=== PATIENT | female | born 1980 | race Caucasian/White ===

== ENCOUNTER 2018-01-25 00:30 | Emergency (ER) | payer MEDICAID, OTHER ==
[2018-01-25] MEDS ORDERED: ACETAMINOPHEN EXTRA STRENGTH 500 MG TABLET ONE (01:15)
[2018-01-25] MEDS ORDERED: CEPHALEXIN 500 MG CAPSULE ONE (01:15)
== END 2018-01-25 01:24 | disposition home or self-care (01) ==
LOC: EDH 00:30
DX: H60.11 Cellulitis of right external ear (principal); J45.909 Unspecified asthma, uncomplicated; F20.9 Schizophrenia, unspecified; Z88.5 Allergy status to narcotic agent; Z88.8 Allergy status to other drugs, medicaments and biological substances; Z72.0 Tobacco use

== ENCOUNTER 2019-01-07 22:00 | Inpatient (IN) | payer SELFPAY ==
[~2019-01-07] VITALS: Ht 165.1 cm; Wt 85.4 kg
[2019-01-07] MEDS ORDERED: LIDOCAINE HCL 1% 20 ML VIAL ONE (22:22)
[2019-01-07 22:44] LABS: BASOPHILS % (AUTO) 0.3 % (0.0-5.0); EOSINOPHILS % (AUTO) 0.6 % (0.0-8.0); HEMATOCRIT 29.6 % (36-48); LYMPHOCYTES % (AUTO) 14.6 % (21.0-51.0); MEAN CORPUSCULAR HEMOGLOBIN 22.6 pg (27.0-33.0); MEAN CORPUSCULAR HGB CONC 31.6 g/dL (32.0-36.0); MEAN CORPUSCULAR VOLUME 71.7 fL (79-99); MONOCYTES % (AUTO) 5.8 % (3.0-13.0); NEUTROPHILS % (AUTO) 78.7 % (40.0-77.0); PLATELET COUNT (AUTO) 293 K/uL (130-400); RED BLOOD CELL COUNT(AUTO) 4.13 MIL/uL (4.00-5.50); RED CELL DISTRIBUTION WIDTH 18.7 % (11.0-15.5); WHITE BLOOD COUNT (AUTO) 17.9 K/uL (4.8-10.8)
[2019-01-07 22:51] LABS: CREATININE 0.9 mg/dL (0.5-1.5); POTASSIUM 3.1 mmol/L (3.5-5.1)
[2019-01-07 22:56] LABS: BILIRUBIN,TOTAL 0.3 mg/dL (0.2-1.0); TOTAL PROTEIN, SERUM 7.9 g/dL (6.0-8.3)
[2019-01-07] MEDS ORDERED: CEFTRIAXONE SODIUM 1 GM ONE (23:07)
[2019-01-07] MEDS ORDERED: CLINDAMYCIN 600 MG/D5% WATER 50 ML IV ONE (23:07)
[2019-01-07] MEDS ORDERED: SODIUM CHLORIDE 0.9% 1000ML 2,000 ML IV ONE (23:08)
[2019-01-08] MEDS ORDERED: HYDRALAZINE HCL 20 MG/ML VIAL IV PRN (01:15)
[2019-01-08] MEDS: CEFTRIAXONE SODIUM 1 GM IV SCH (01:15)
[2019-01-08] MEDS: CLINDAMYCIN 600 MG/D5% WATER 50 ML IV SCH ×3 (01:15→15:42)
[2019-01-08] MEDS ORDERED: HYDROMORPHONE 1 MG/1 ML AMP IV PRN (01:15)
[2019-01-08 05:10] VITALS: BP 123/66
[2019-01-08 05:48] LABS: BASOPHILS % (AUTO) 0.3 % (0.0-5.0); EOSINOPHILS % (AUTO) 1.3 % (0.0-8.0); HEMATOCRIT 28.9 % (36-48); LYMPHOCYTES % (AUTO) 24.7 % (21.0-51.0); MEAN CORPUSCULAR HEMOGLOBIN 23.4 pg (27.0-33.0); MEAN CORPUSCULAR HGB CONC 31.8 g/dL (32.0-36.0); MEAN CORPUSCULAR VOLUME 73.4 fL (79-99); NEUTROPHILS % (AUTO) 66.7 % (40.0-77.0); NUCLEATED RED BLOOD CELLS 0.1 % (0.0-0.19); PLATELET COUNT (AUTO) 227 K/uL (130-400); RED BLOOD CELL COUNT(AUTO) 3.94 MIL/uL (4.00-5.50); RED CELL DISTRIBUTION WIDTH 19.4 % (11.0-15.5)
[2019-01-08 05:58] LABS: ALBUMIN 2.7 g/dL (3.5-5.0); BILIRUBIN,TOTAL 0.2 mg/dL (0.2-1.0); CREATININE 0.8 mg/dL (0.5-1.5); CRP QUANTITATIVE 58.5 mg/L (0.00-9.0)
--- NOTE | 2019-01-08 06:05 | NUR ---
critical k level asked unite loan secretary to page md/gifted teacher concrete craftsman for hospitalist regarding k level awaiting call back
[2019-01-08] MEDS: SODIUM CHLORIDE 0.9% 1000ML 1,000 ML IV SCH ×3 (06:15→21:10)
--- NOTE | 2019-01-08 06:32 | NUR ---
/technical staff engineer paged paged for k level of 3.0
[2019-01-08] MEDS ORDERED: POTASSIUM CHLORIDE 20MEQ/100ML 100 ML IV PRN (07:00)
[2019-01-08] MEDS ORDERED: POTASSIUM CHLORIDE 10% ELIXIR 20 MEQ/15 ML UDCUP PO PRN (07:00)
[2019-01-08] MEDS ORDERED: LIDOCAINE HCL-MPF 1% 2ML VIAL IV PRN (07:00)
--- NOTE | 2019-01-08 07:00 | NUR ---
md return call dr mccrary returned phone call orders to initiate hypokalemia protocol po
[2019-01-08 07:30] VITALS: BP 157/90
[2019-01-08] MEDS: FAMOTIDINE/PF 20 MG/2 ML VIAL IV SCH ×2 (08:52→22:27)
[2019-01-08 11:00] VITALS: BP 172/104
--- NOTE | 2019-01-08 11:05 | NUR ---
GENERAL SURGERY CONSULT Dr. Tesfaye was called and notified of consult. Stated he will see patient tomorrow.
[2019-01-08] MEDS: KETOROLAC TROMETHAMINE 30MG/ML IV PRN (11:53)
[2019-01-08] MEDS: POTASSIUM CHLORIDE 20 MEQ ERTAB PO PRN ×2 (12:26→15:42)
[2019-01-08 16:00] VITALS: BP 145/94
--- NOTE | 2019-01-08 18:07 | NUR ---
cm note met with patient and states resides at home alone, independent with adls and self care no dme. dcplan is back to home at time of dc. provided pt with list of low income clinics and RX assist packet in the area. pt verbalizes understanding and states [facility] for possible assistance with medicaid. Addendum: 01/08/19 at 1809 by ELKE GARY CM Amended: Links added.
--- NOTE | 2019-01-08 19:00 | NUR ---
MRI RESULTS Left hand MRI results reported to Dr. Mcallister and he is aware of possible osteomyelitis. No further orders.
--- NOTE | 2019-01-08 21:25 | NUR ---
PT NOT IN HER ROOM PT NOT IN HER ROOM FOR ASSESSMENT. VITA IGLESIAS CALLED AND CALL WAS DISCONNECT. ANOTHER CALL WAS IMMEDIATELY PLACED TO HER CELL PHONE WHICH WENT STRAIGHT TO VOICE MAIL. PT RETURNED PHONE CALL AND WAS ASKED TO RETURN TO THE FLOOR. SHEET MILL SUPERVISOR NOTIFIED OF CURRENT SITUATION.
--- NOTE | 2019-01-08 22:00 | NUR ---
PT STILL NOT IN HER ROOM POMOLOGIST NOTIFIED PT IS STILL NOT IN HER ROOM. POMOLOGIST INSTRUCTED LUKE RN TO NOTIFY PT SHE HAD 30 MINUTES TO RETURN TO HER ROOM OR [place] [employer] WOULD BE CALLED.
[2019-01-08 22:15] VITALS: BP 149/103
--- NOTE | 2019-01-08 22:15 | NUR ---
PT RETURNED PT RETURNED TO HER ROOM. PT INSTRUCTED SHE COULD NOT LEAVE THE FLOOR WITHOUT TELLING STAFF OR TAKE [facility]QU[facility]MENT OUTSIDE. PT UPSET BUT VERBALIZED UNDERSTANDING OF SAME. ASSESSMENT COMPLETED. CALLBELL REVIEWED AND WITHIN REACH. ASSESSMENT COMPLETED, SEE FLOW SHEET.
--- NOTE | 2019-01-08 22:30 | NUR ---
PT. OUT OF ROOM PT. HAS BEEN OFF THE FLOOR AND NOWHERE TO BE FOUND SINCE 1900 WHEN SHE WAS LAST SEEN IN HER ROOM. CALLS WERE PLACED TO HER ON HER CELL PHONE AND SHE STATED THAT SHE WAS OUTSIDE WITH A FRIEND BECAUSE VISITING HOURS HAD ENDED. SHE DID NOT NOTIFY ANY STAFF MEMBERS--DISCONNECTED HERSELF FROM THE IV AND MISSED SCHEDULED ANTIBIOTIC MEDICATION. MORE CALLS WERE PLACED TO HER CELL PHONE INSTRUCTING HER TO RETURN TO HER ROOM. SECURITY CHECKED THE OUTSIDE PROPERTY AND COULD NOT FIND HER. OUR LAST CALL TO HER (~ [phone]) WAS TO INFORM HER THAT SHE HAD 30 MINUTES TO RETURN TO HER ROOM OR WE WOULD CALL [employer] TO LOOK FOR HER. SHE RETURNED ALMOST IMMEDIATELY AND STATED SHE WAS SITTING IN A CAR IN THE PARKING LOT AND SMOKING. STAFF CLAIMED THAT SHE WAS WEARING DIFFERENT CLOTHING WHEN SHE RETURNED THAN WHEN SHE LEFT.
--- NOTE | 2019-01-08 23:12 | NUR ---
DRUG SCREEN HAVE EXPLAINED PATIENT'S ABSENCE FROM BUILDING TO ROXANE SEBASTIAN. ORDERS RECEIVED
--- NOTE | 2019-01-08 23:30 | NUR ---
AIR TRAFFIC CONTROL SPECIALIST PT INSTRUCTED TO NOT LEAVE THE FLOOR ANYMORE PER AIR TRAFFIC CONTROL SPECIALIST. PT VERBALIZED UNDERSTANDING, EXPRESSED FEELING, EMOTIONAL SUPPORT PROVIDED
[2019-01-08 23:48] VITALS: BP 190/123
[2019-01-09] MEDS: CEFTRIAXONE SODIUM 1 GM IV SCH (00:21)
[2019-01-09] MEDS: CLINDAMYCIN 600 MG/D5% WATER 50 ML IV SCH ×2 (00:22→08:59)
[2019-01-09] MEDS: KETOROLAC TROMETHAMINE 30MG/ML IV PRN ×3 (00:22→22:58)
[2019-01-09 03:33] LABS: AMPHET/METH SCREEN,URINE NEGATIVE (NEGATIVE); BARBITURATE SCREEN, URINE NEGATIVE (NEGATIVE); BENZODIAZEPINES SCREEN,URINE NEGATIVE (NEGATIVE); CANNABINOID SCREEN,URINE NEGATIVE (NEGATIVE); COCAINE SCREEN,URINE POSITIVE (NEGATIVE); OPIATE SCREEN,URINE NEGATIVE (NEGATIVE); PHENCYCLIDINE SCREEN,URINE NEGATIVE (NEGATIVE)
[2019-01-09 04:35] VITALS: BP 179/102
[2019-01-09 04:47] LABS: BASOPHILS % (AUTO) 0.2 % (0.0-5.0); EOSINOPHILS % (AUTO) 1.9 % (0.0-8.0); HEMATOCRIT 28.1 % (36-48); LYMPHOCYTES % (AUTO) 26.2 % (21.0-51.0); MEAN CORPUSCULAR HEMOGLOBIN 23.3 pg (27.0-33.0); MEAN CORPUSCULAR HGB CONC 32.6 g/dL (32.0-36.0); MEAN CORPUSCULAR VOLUME 71.6 fL (79-99); MONOCYTES % (AUTO) 8.9 % (3.0-13.0); NEUTROPHILS % (AUTO) 62.8 % (40.0-77.0); PLATELET COUNT (AUTO) 281 K/uL (130-400); RED BLOOD CELL COUNT(AUTO) 3.93 MIL/uL (4.00-5.50); RED CELL DISTRIBUTION WIDTH 18.8 % (11.0-15.5); WHITE BLOOD COUNT (AUTO) 10.3 K/uL (4.8-10.8)
[2019-01-09] MEDS: SODIUM CHLORIDE 0.9% 1000ML 1,000 ML IV SCH ×2 (05:07→22:57)
[2019-01-09 05:15] LABS: ALBUMIN 2.6 g/dL (3.5-5.0); BILIRUBIN,TOTAL 0.2 mg/dL (0.2-1.0); CREATININE 0.7 mg/dL (0.5-1.5); POTASSIUM 3.7 mmol/L (3.5-5.1); TOTAL PROTEIN, SERUM 7.1 g/dL (6.0-8.3)
[2019-01-09 08:00] VITALS: BP 166/122
[2019-01-09] MEDS: FAMOTIDINE/PF 20 MG/2 ML VIAL IV SCH ×2 (08:59→20:53)
--- NOTE | 2019-01-09 11:50 | NUR ---
C consult Patient has a surgical consult pending. [facility] will submit recommendations after surgical consult done if needed.
[2019-01-09 12:00] VITALS: BP 142/83
[2019-01-09] MEDS ORDERED: VANCOMYCIN PROTOCOL PER PHARMACY IV SCH (14:30)
[2019-01-09] MEDS ORDERED: UNASYN 3GM+NS 100ML 3 GM/100 ML IV.KIT IV SCH (14:30)
[2019-01-09] MEDS ORDERED: COMPOUND IV REFRIGERATED 1 EACH IVSOLN MISC PRN (14:30)
[2019-01-09] MEDS: UNASYN 3GM+NS 100ML 100 ML IV SCH ×2 (17:24→20:30)
[2019-01-09 17:33] VITALS: BP 151/99
[2019-01-09 20:00] VITALS: BP 141/88
[2019-01-09] MEDS: VANCOMYCIN 1.25 GM in SODIUM CHLORIDE 0.9% 250 ML IV SCH (20:53)
[2019-01-10] VITALS: BP 144/70
[2019-01-10] MEDS: UNASYN 3GM+NS 100ML 100 ML IV SCH ×4 (02:10→21:02)
[2019-01-10] MEDS: SODIUM CHLORIDE 0.9% 1000ML 1,000 ML IV SCH ×2 (03:10→13:10)
[2019-01-10 03:43] VITALS: BP 146/90
--- NOTE | 2019-01-10 07:30 | NUR ---
REFUSING TO BE NPO PATIENT IS SCHEDULED FOR I & D OF LEFT HAND BUT STATED " I HAVE BEEN WITHOUT EATING OR DRINKING FOR 15 HOURS, I WILL NOT WAIT ANY LONGER.
--- NOTE | 2019-01-10 07:50 | NUR ---
DR RADHA GARCIA MADE AWARE THAT PATIENT IS REFUSING TO NPO FOR I & D PROCEDURE. PATIENT HAS SIGNED REFUSAL OF TREATMENT FORM.
[2019-01-10 08:00] VITALS: BP 160/90
--- NOTE | 2019-01-10 08:00 | NUR ---
DR KARL BARAJAS'S OFFICED CALLED TO MAKE AWARE PATIENT HAS SIGNED REFUSAL OF TREATMENT.
[2019-01-10] MEDS: FAMOTIDINE/PF 20 MG/2 ML VIAL IV SCH ×2 (09:15→21:03)
[2019-01-10] MEDS: NICOTINE 7 MG/ 24 HR PATCH TD SCH (09:15)
[2019-01-10] MEDS: VANCOMYCIN 1.25 GM in SODIUM CHLORIDE 0.9% 250 ML IV SCH ×2 (11:00→21:03)
[2019-01-10 12:00] VITALS: BP 157/78
[2019-01-10] MEDS: KETOROLAC TROMETHAMINE 30MG/ML IV PRN ×2 (15:55→21:05)
[2019-01-10 16:00] VITALS: BP 165/96
[2019-01-10 20:00] VITALS: BP 166/88
[2019-01-11] VITALS (26 sets, daily range): BP systolic 108–167; BP diastolic 54–99
[2019-01-11] MEDS: SODIUM CHLORIDE 0.9% 1000ML 1,000 ML IV SCH ×3 (01:39→17:47)
[2019-01-11] MEDS: UNASYN 3GM+NS 100ML 100 ML IV SCH ×4 (01:39→20:43)
[2019-01-11 05:21] LABS: BASOPHILS % (AUTO) 0.2 % (0.0-5.0); EOSINOPHILS % (AUTO) 4.5 % (0.0-8.0); HEMATOCRIT 33.4 % (36-48); LYMPHOCYTES % (AUTO) 33.7 % (21.0-51.0); MEAN CORPUSCULAR HEMOGLOBIN 22.5 pg (27.0-33.0); MEAN CORPUSCULAR HGB CONC 31.3 g/dL (32.0-36.0); MEAN CORPUSCULAR VOLUME 71.8 fL (79-99); MONOCYTES % (AUTO) 8.7 % (3.0-13.0); NEUTROPHILS % (AUTO) 52.9 % (40.0-77.0); PLATELET COUNT (AUTO) 316 K/uL (130-400); RED BLOOD CELL COUNT(AUTO) 4.65 MIL/uL (4.00-5.50); RED CELL DISTRIBUTION WIDTH 19.2 % (11.0-15.5); WHITE BLOOD COUNT (AUTO) 8.8 K/uL (4.8-10.8)
[2019-01-11 05:29] LABS: CREATININE 0.7 mg/dL (0.5-1.5); POTASSIUM 3.6 mmol/L (3.5-5.1)
[2019-01-11] MEDS ORDERED: LACTATED RINGERS 1000ML 1,000 ML IV ONE (08:23)
[2019-01-11] MEDS ORDERED: LIDOCAINE PF 2% 5ML ABBOJECT ONE (08:39)
[2019-01-11] MEDS ORDERED: SUCCINYLCHOLINE 200MG/10ML SYR ONE (08:39)
[2019-01-11] MEDS ORDERED: ONDANSETRON HCL 4 MG/2 ML VIAL ONE (08:40)
[2019-01-11] MEDS ORDERED: PROPOFOL 10 MG/ML 20ML VIAL IV ONE (08:40)
[2019-01-11] MEDS ORDERED: ROCURONIUM 10MG/1ML SYR 10 MG/ML ML ONE (08:40)
[2019-01-11] MEDS ORDERED: FENTANYL CITRATE PF 50 MCG/1 ML 2ML VIAL ONE (08:40)
[2019-01-11] MEDS ORDERED: MIDAZOLAM HCL 1 MG/ML 2ML VIAL ONE (08:40)
[2019-01-11] MEDS ORDERED: IPRATROPIUM/ALBUTEROL SULFATE 3 ML SOLUTION IH ONE (08:41)
[2019-01-11] MEDS ORDERED: IPRATROPIUM/ALBUTEROL SULFATE 3 ML SOLUTION IH SCH (09:00)
[2019-01-11] MEDS ORDERED: CEFAZOLIN SODIUM 1 GM VIAL ONE (09:04)
[2019-01-11] MEDS ORDERED: VANCOMYCIN 1.5 GM in SODIUM CHLORIDE 0.9% 250 ML IV SCH (11:15)
[2019-01-11] MEDS: NICOTINE 7 MG/ 24 HR PATCH TD SCH (11:24)
[2019-01-11] MEDS: FAMOTIDINE/PF 20 MG/2 ML VIAL IV SCH ×2 (11:24→20:42)
[2019-01-11] MEDS: KETOROLAC TROMETHAMINE 30MG/ML IV PRN ×2 (11:31→18:50)
--- NOTE | 2019-01-11 14:51 | NUR ---
RDSCREEN - LOS X 4 Pt admitted for Cellulitis, wound infection. Pt s/p I&D this AM, pending an additional. Recommend to resume diet order when medically feasible. Pt medical Hx of Hep C, Schizophrenia, Drug abuse, asthma, endometriosis. Pt LBM 01/10/19. Pt monitored labs: Ca 8.3, Alb 2.6, Crp 35. RD to continue to monitor. Please notify RD as additional nutrition concerns arise. Thank you. Addendum: 01/11/19 at [address] RD Amended: Links added.
[2019-01-11 15:27] LABS: APPEARANCE,URINE Clear (CLEAR); BILIRUBIN,URINE Negative (NEGATIVE); COLOR,URINE Yellow (YELLOW); GLUCOSE, URINE (UA) Negative (NEGATIVE); KETONES,URINE Negative (NEGATIVE); LEUKOCYTE ESTERASE ,URINE Small (NEGATIVE); NITRATE,URINE Negative (NEGATIVE); OCCULT BLOOD,URINE Trace (NEGATIVE); PROTEIN,URINE Negative (NEGATIVE); UROBILINOGEN,URINE 0.2 mg/dL (0.2-1.0)
[2019-01-11 15:50] LABS: BACTERIA,URINE Few /HPF (None Seen); MUCUS,URINE Moderate LPF (None Seen); YEAST,URINE BUDDING Moderate /HPF (None Seen)
[2019-01-11] MEDS: POTASSIUM CHLORIDE 20 MEQ ERTAB PO PRN ×2 (19:00→22:11)
--- NOTE | 2019-01-11 21:50 | NUR ---
Pt requesting for a sleeping pill. Verbalized she was having anxiety and needs something that will make her sleep. Called on-call hospitalist ( ROXANE Arceo) with an order to give Ambien 5 mg po x 1 dose only- carried out.
[2019-01-11] MEDS: VANCOMYCIN 1GM+NS 250ML 250 ML IV SCH (22:10)
[2019-01-11] MEDS ORDERED: ZOLPIDEM TARTRATE 5 MG TAB PO ONE (22:55)
[2019-01-12] VITALS: BP 133/70
[2019-01-12] MEDS: UNASYN 3GM+NS 100ML 100 ML IV SCH ×2 (03:02→11:04)
[2019-01-12 03:36] VITALS: BP 137/78
[2019-01-12 05:08] LABS: BASOPHILS % (AUTO) 0.2 % (0.0-5.0); EOSINOPHILS % (AUTO) 4.7 % (0.0-8.0); HEMATOCRIT 31.6 % (36-48); LYMPHOCYTES % (AUTO) 23.4 % (21.0-51.0); MEAN CORPUSCULAR HEMOGLOBIN 23.1 pg (27.0-33.0); MEAN CORPUSCULAR HGB CONC 32.2 g/dL (32.0-36.0); MEAN CORPUSCULAR VOLUME 71.6 fL (79-99); MONOCYTES % (AUTO) 8.2 % (3.0-13.0); NEUTROPHILS % (AUTO) 63.5 % (40.0-77.0); PLATELET COUNT (AUTO) 326 K/uL (130-400); RED BLOOD CELL COUNT(AUTO) 4.41 MIL/uL (4.00-5.50); RED CELL DISTRIBUTION WIDTH 18.6 % (11.0-15.5); WHITE BLOOD COUNT (AUTO) 9.1 K/uL (4.8-10.8)
[2019-01-12 05:53] LABS: CREATININE 0.8 mg/dL (0.5-1.5); POTASSIUM 4.1 mmol/L (3.5-5.1)
[2019-01-12] MEDS: VANCOMYCIN 1GM+NS 250ML 250 ML IV SCH (06:23)
[2019-01-12 07:42] VITALS: BP 151/76
[2019-01-12] MEDS: NICOTINE 7 MG/ 24 HR PATCH TD SCH (11:05)
[2019-01-12] MEDS: FAMOTIDINE/PF 20 MG/2 ML VIAL IV SCH (11:05)
[2019-01-12 11:46] VITALS: BP 151/81
[2019-01-12] MEDS: KETOROLAC TROMETHAMINE 30MG/ML IV PRN (11:53)
--- NOTE | 2019-01-12 12:05 | NUR ---
PREVIOUS TROPICAL CLIENT PREVIOUS TROPICAL CLIENT QUESTIONED PATIENT- PREVIOUSE TROPICAL PATIENT FOR SIX YEARS, THEN MOVED OUT OF STATE- FOR UNDEFINED PERIOS OF TIME , NOW BACK, NEEDS TO FOLLOW UP CALL TO [facility] TO SET UP INTAKE- PHONE NUMBER FOR TRIAGE GIVEN TO PATIENT. STATES SHE WILL CALL TO DO THE INTERVIEW NOW.
--- NOTE | 2019-01-12 14:06 | NUR ---
CALL TO DR. ASHER, ADVISED HIM PT REALLY WANTS TO GO HOME THIS AFTERNOON STATES HE WOULD RECOMMEND AUGMENTIN X 6-8 DAYS AND BACTRIM DS FOR 10 DAYS IF PT REALLY WANTED TO LEAVE CALL TO DR. LEWIS, DOES NOT HAVE THIS PATIENT TODAY CALL TO DR LLOYD, ADVISED HIM OF DR. Rich'S RECOMMENDATION, STATES WILL PLAN FOR DISCHARGE BUT ADVISE PT IT WILL BE LATE- IS IN A MEETING
[2019-01-12 15:37] VITALS: BP 163/98
[2019-01-12] MEDS ORDERED: SULF1TAB42 PO (16:08)
[2019-01-12] MEDS ORDERED: AMOX-429 PO (16:17)
--- NOTE | 2019-01-12 16:30 | NUR ---
FOLLOW UP WITH YOUR PRIMARY DOCTOR IN 2-4 DAYS. FOLLOW UP WITH SURGEON DR. BARAJAS IN 1-2 WEEKS CALL TO SET UP AN APPOINTMENT AT PHONE [phone]. FOLLOW UP WITH INFECTIOUS DISEASE DR. ASHER IN 1-2 WEEKS. CALL TO SET UP AN APPOINTMENT AT PHONE [phone] Dressing Changes: Change dressing daily with 2x2's and tape, Cover left hand incision with 4x4 and tape, reduce paking by cutting packing by 1/2 inch daily. IF DRAINAGE (PUS LIKE) CONTINUES, BLEEDING, HOT TO TOUCH OR REDNESS TO THE SURGICAL SITE CALL YOUR PRIMARY DOCTOR OR SURGEON. FINISH FULL COURSE OF ANTIBIOTIC THERAPY TO PREVENT SUPER INFECTION. CALL YOUR DOCTOR IF FEVERS GREATER THAN 101.0 COULD MEAN AN INFECTIONS IS PRESENT. PT IV D/C, NO BLEEDING INTACT, DENIES ANY QUESTIONS, NO DISTRESS, PICTURES TAKEN, DRESSING CHANGES DONE PRIOR TO D/C HOME, AND TEACH BACK TECHNIQUE USED WITH NEW MEDS, AND DRESSING CHANGES.
[2019-01-12] MEDS ORDERED: VANCOMYCIN 1.25 GM in SODIUM CHLORIDE 0.9% 250 ML IV SCH (17:00)
== END 2019-01-12 17:10 | disposition home or self-care (01) | DRG 854 ==
LOC: EDH 22:00 → EDHIP 22:01 → UNDOADMIN 01-08 01:10 → 3BH 01-08 03:01
PROVIDERS: ADMIT Family Medicine; ATTEND Family Medicine
PROC: 0J910ZZ Drainage of Face Subcutaneous Tissue and Fascia, Open Approach (ICD-10-PCS; 2019-01-11)
PROC: 0J9K0ZZ Drainage of Left Hand Subcutaneous Tissue and Fascia, Open Approach (ICD-10-PCS; principal; 2019-01-11 08:00)
DX: A41.9 Sepsis, unspecified organism (principal); L02.01 Cutaneous abscess of face; E46 Unspecified protein-calorie malnutrition; L02.512 Cutaneous abscess of left hand; L03.211 Cellulitis of face; M86.8X7 Other osteomyelitis, ankle and foot; F14.20 Cocaine dependence, uncomplicated; D64.9 Anemia, unspecified; B19.20 Unspecified viral hepatitis C without hepatic coma; B95.62 Methicillin resistant Staphylococcus aureus infection as the cause of diseases classified elsewhere; F20.9 Schizophrenia, unspecified; I10 Essential (primary) hypertension; W55.01XA Bitten by cat, initial encounter; Y93.89 Activity, other specified; Y92.89 Other specified places as the place of occurrence of the external cause; Z68.31 Body mass index [BMI] 31.0-31.9, adult; Z88.5 Allergy status to narcotic agent; Z88.8 Allergy status to other drugs, medicaments and biological substances; Y99.8 Other external cause status; Z83.3 Family history of diabetes mellitus; Z82.5 Family history of asthma and other chronic lower respiratory diseases; Z82.3 Family history of stroke; Z82.0 Family history of epilepsy and other diseases of the nervous system; Z81.8 Family history of other mental and behavioral disorders; Z82.49 Family history of ischemic heart disease and other diseases of the circulatory system
CPT/HCPCS: 36415; 73130; 73218; 80048; 80053; 80202; 80305; 81001; 83605; 84132; 84145; 84703; 85025; 86140; 87040; 87070; 87076; 94640; G0378; J0295; J0330; J0690; J0696; J1885; J2001; J2250; J2405; J2704; J3010; J3370; J3480; J3490; J7030; J7120

== ENCOUNTER 2019-11-28 13:11 | Emergency (ER) | payer OTHER ==
[~2019-11-28 13:11] MED LIST: AMOX-429 PO; SULF1TAB42 PO
== END 2019-11-28 13:53 ==
LOC: EDH 13:11
DX: Z02.89 Encounter for other administrative examinations (principal); J45.909 Unspecified asthma, uncomplicated; F14.90 Cocaine use, unspecified, uncomplicated; F20.9 Schizophrenia, unspecified; Z72.0 Tobacco use; R73.09 Other abnormal glucose; Z88.6 Allergy status to analgesic agent; Z88.8 Allergy status to other drugs, medicaments and biological substances
CPT/HCPCS: 82948